=== PATIENT | male | born 1960 | race African-American/Black ===

== ENCOUNTER 2016-06-28 13:10 | Observation (INO) | payer MEDICAID ==
[2016-06-28] MEDS ORDERED: WELLBUTRIN XL150 M1 PO (13:26)
[2016-06-28] MEDS ORDERED: OMEPRAZOLE20 M3 PO (13:27)
[2016-06-28] MEDS ORDERED: TRAZODONE HCL100 M1 PO (13:28)
[2016-06-28] MEDS ORDERED: GEODON80 M1 PO (13:29)
[2016-06-28] MEDS ORDERED: ONE-A-DAY MEN'1 EAC3 PO (13:32)
[2016-06-28] MEDS ORDERED: [UNRECOGNIZED DRUG - OTHER] PO (13:32)
[2016-06-28] MEDS ORDERED: ASPIRIN81 M1 PO (13:33)
[2016-06-28 14:41] LABS: BASO % 0.3 % (0-2); EOS % 2.6 % (0-7); EOSINOPHIL ABSOLUTE COUNT 0.2 tho/cmm (0.0-0.7); HCT-HEMATOCRIT 47.6 % (36.0-53.5); HGB-HEMOGLOBIN 17.1 gm/dl (13.5-17.0); IMMATURE GRANULOCYTES ABSOLUTE 0.02 tho/cmm (0-0.03); IMMATURE GRANULOCYTES PERCENT 0.3 % (0-0.3); LYMPH % 41.9 % (20-45); LYMPH ABSOLUTE COUNT 2.8 tho/cmm (0.8-4.5); MCH (MEAN CORPUSCULAR HGB) 30.8 pg (28.0-32.0); MCHC MEAN CORPUSCULAR HGB CONC 35.9 % (32.0-36.0); MCV (MEAN CELL VOLUME) 85.8 fl (82.0-96.0); MEAN PLATELET VOLUME 9.7 cmc (9.4-12.4); MONO % 8.8 % (0-12); MONOCYTE ABSOLUTE COUNT 0.6 tho/cmm (0.0-1.2); NEUTROPHIL ABSOLUTE COUNT 3.1 tho/cmm (1.6-8.0); NEUTROPHIL-AUTOMATED 3.1 tho/cmm (1.6-8.0); NEUTROPHILS % 46.1 % (40-80); PLATELET COUNT 249 tho/cmm (150-450); RED BLOOD COUNT 5.55 mil/cmm (4.40-5.70); RED CELL DISTRIBUTION WIDTH 13.8 % (12.4-16.4); WHITE BLOOD COUNT 6.6 tho/cmm (4.0-10.0)
[2016-06-28 14:52] LABS: ALB/GLOB RATIO 0.8 (0.8-2.0); ALBUMIN 3.4 g/dl (3.5-5.0); ALCOHOL (ETOH) <10 mg/dl (<10); ALKALINE PHOSPHATASE 102 U/L (33-138); ALT/SGPT 52 U/L (12-78); ANION GAP 12 mmol/L (0-20); AST/SGOT 50 U/L (10-40); BILIRUBIN,DIRECT 0.2 mg/dl (0.0-0.3); BILIRUBIN,INDIRECT 0.3 mg/dL (0.0-1.0); BILIRUBIN,TOTAL 0.5 mg/dl (0.0-1.5); BLOOD UREA NITROGEN 10 mg/dl (6-24); CALCIUM 8.7 mg/dl (8.5-10.5); CARBON DIOXIDE-VENOUS 26 mmol/L (22-32); CHLORIDE 107 mmol/l (96-110); CREATININE 1.14 mg/dl (0.60-1.30); GLUCOSE 92 mg/dL (70-110); LIPASE 213 U/L (73-393); POTASSIUM 4.2 mmol/L (3.7-5.1); SODIUM 141 mmol/L (135-145); eGFR VALUE FOR BLACK 82 mL/Min
[2016-06-29 03:36] LABS: URINE BILIRUBIN NEGATIVE (NEG); URINE BLOOD NEGATIVE (NEG); URINE GLUCOSE (UA) NEGATIVE (NEG); URINE KETONE NEGATIVE (NEG); URINE LEUKOCYTE ESTERASE NEGATIVE (NEG); URINE NITRITE NEGATIVE (NEG); URINE PROTEIN SMALL (NEG); URINE SPECIFIC GRAVITY 1.015 (1.003-1.030)
[2016-06-29 03:37] LABS: URINE COLOR YELLOW
[2016-06-29 03:38] LABS: URINE APPEARANCE CLEAR
[2016-06-29 04:11] LABS: URINE EPITHELIAL CELLS RARE /[HPF] (0-10); URINE RBC 0 /[HPF] (0-5); URINE WBC 0 /[HPF] (0-5)
[2016-06-30] MEDS ORDERED: VIBRAMYCIN100 M1 PO (11:53)
[2016-06-30] MEDS ORDERED: NICOTINE PATCH1 EAC2 TP (11:54)
== END 2016-06-30 12:13 ==
LOC: EDMED 13:10 → EMR2 16:44 → CAR1 18:44
PROVIDERS: Family Medicine; ADMIT Hospitalist
PROC: 0DBL8ZZ Excision of Transverse Colon, Via Natural or Artificial Opening Endoscopic (ICD-10-PCS; principal; 2016-06-29)
PROC: 0DBK8ZZ Excision of Ascending Colon, Via Natural or Artificial Opening Endoscopic (ICD-10-PCS; 2016-06-29)
PROC: 0DB98ZX Excision of Duodenum, Via Natural or Artificial Opening Endoscopic, Diagnostic (ICD-10-PCS; 2016-06-30)
DX: K64.8 Other hemorrhoids (principal); K57.30 Diverticulosis of large intestine without perforation or abscess without bleeding; D12.2 Benign neoplasm of ascending colon; D12.3 Benign neoplasm of transverse colon; M19.90 Unspecified osteoarthritis, unspecified site; F41.9 Anxiety disorder, unspecified; F31.9 Bipolar disorder, unspecified; K21.9 Gastro-esophageal reflux disease without esophagitis; F17.210 Nicotine dependence, cigarettes, uncomplicated; F10.10 Alcohol abuse, uncomplicated; I10 Essential (primary) hypertension; G89.29 Other chronic pain; M54.5 Low back pain; Z79.82 Long term (current) use of aspirin; Z79.899 Other long term (current) drug therapy; Z90.49 Acquired absence of other specified parts of digestive tract; Z97.0 Presence of artificial eye; Z98.52 Vasectomy status; Z98.890 Other specified postprocedural states
CPT/HCPCS: G0378; G0480; J7030; Q9967